=== PATIENT | male | born 1960 | race African-American/Black ===

== ENCOUNTER 2019-02-05 08:10 | Emergency (ER) | payer MEDICARE, MEDICAID ==
[2019-02-05 09:04] LABS: ALANINE AMINOTRANSFERASE 24 U/L (21-72); ALBUMIN 3.7 g/dL (3.5-5.0); ALKALINE PHOSPHATASE 61 U/L (38-126); ANION GAP 5 (5-19); ASPARTATE AMINO TRANSFERASE 26 U/L (17-59); BILIRUBIN,DIRECT 0.2 mg/dL (0.0-0.4); BILIRUBIN,TOTAL 0.5 mg/dL (0.2-1.3); BLOOD UREA NITROGEN 19 mg/dL (7-20); CALCIUM 9.3 mg/dL (8.4-10.2); CARBON DIOXIDE 24 mmol/L (22-30); CHLORIDE 111 mmol/L (98-107); GLUCOSE 91 mg/dL (75-110); LIPASE 323.5 U/L (23-300); POTASSIUM 4.7 mmol/L (3.6-5.0); SODIUM 140.2 mmol/L (137-145); TOTAL PROTEIN 6.5 g/dL (6.3-8.2)
[2019-02-05 09:14] LABS: APPEARANCE,URINE CLEAR; BILIRUBIN,URINE NEGATIVE (NEGATIVE); COLOR,URINE YELLOW; GLUCOSE, URINE NEGATIVE (NEGATIVE); KETONES,URINE NEGATIVE (NEGATIVE); LEUKOCYTE ESTERASE,URINE NEGATIVE (NEGATIVE); NITRITE,URINE NEGATIVE (NEGATIVE); PROTEIN,URINE 100 mg/dL (NEGATIVE); URINE SPECIFIC GRAVITY 1.019; UROBILINOGEN,URINE NEGATIVE mg/dL (<2.0)
[2019-02-05 09:18] LABS: ABSOLUTE EOSINOPHILS # (AUTO) 0.1 10^3/uL (0.0-0.6); ABSOLUTE LYMPHOCYTES (AUTO) 2.8 10^3/uL (0.5-4.7); ABSOLUTE MONOCYTES (AUTO) 0.8 10^3/uL (0.1-1.4); BASOPHILS % (AUTO) 0.5 % (0-2); EOSINOPHILS % (AUTO) 1.9 % (0-6); HEMATOCRIT 39.9 % (37.9-51.0); HEMOGLOBIN 13.1 g/dL (13.5-17.0); LYMPHOCYTES % (AUTO) 36.3 % (13-45); MEAN CORPUSCULAR HEMOGLOBIN 27.8 pg (27.0-33.4); MEAN CORPUSCULAR HGB CONC 32.9 g/dL (32.0-36.0); MEAN CORPUSCULAR VOLUME 84 fl (80-97); PLATELET COUNT 250 10^3/uL (150-450); RED BLOOD COUNT 4.73 10^6/uL (4.35-5.55); RED CELL DISTRIBUTION WIDTH 14.9 % (11.5-14.0); SEGMENTED NEUTROPHILS % (AUTO) 51.3 % (42-78); TOTAL CELLS COUNTED % (AUTO) 100 %; WHITE BLOOD COUNT 7.9 10^3/uL (4.0-10.5)
[2019-02-05] MEDS ORDERED: DICYCLOMINE HCL INJ 20 MG/2 ML AMPULE IM ONE (09:32)
[2019-02-05] MEDS ORDERED: ONDANSETRON HCL INJ/PF 4 MG/2 ML SDV IV ONE (09:32)
--- NOTE | 2019-02-05 09:51 | ER Document Report ---
ED General - General Chief Complaint: Abdominal Pain Stated Complaint: ABDOMINAL PAIN Time Seen by Provider: 02/05/19 09:03 Primary Care Provider: AMY JOVEL MD [Primary Care Provider] - Follow up as needed - HPI Notes: Patient is a 58-year-old male who presents emergency department for evaluation of abdominal pain, nausea, vomiting, diarrhea. He states his symptoms began 2 nights ago. He has had 4 episodes of nonbloody, nonbilious emesis. He has had multiple episodes of watery diarrhea. He has a crampy pain in his right abdomen, which waxes and wanes in severity but no other seems to go away. He denies any urinary symptoms of any sort. He was actually seen in the emergency department last night at [facility]. He states that he did have a CT scan, with IV contrast. He notes that there was "something in my upper abdomen." He cannot further elaborate. He states he was on his way to [place] this morning, where his oncologist is, and his pain was more significant, so he p resents to the ED for further evaluation. He has had some chills, but is unsure as to whether or not this is just because his house is kept "so darn cold." - Related Data Allergies/Adverse Reactions: bacitracin Allergy (Verified 02/05/19 08:15) Sulfa (Sulfonamide Antibiotics) Allergy (Verified 02/05/19 08:15) zinc Allergy (Verified 02/05/19 08:15) Past Medical History - General Information source: Patient - Social History Smoking Status: Unknown if Ever Smoked Family History: Reviewed & Not Pertinent Patient has suicidal ideation: No Patient has homicidal ideation: No Renal/ Medical History: Denies: Hx Peritoneal Dialysis Malignancy Medical History: Reports Hx Leukemia Review of Systems - Review of Systems Constitutional: See HPI EENT: No symptoms reported Cardiovascular: No symptoms reported Respiratory: No symptoms reported Gastrointestinal: See HPI Genitourinary: No symptoms reported Male Genitourinary: No symptoms reported Musculoskeletal: No symptoms reported Skin: No symptoms reported Neurological/Psychological: No symptoms reported Physical Exam - Vital signs Vitals: Temp Pulse Resp BP Pulse Ox 97.6 F 78 16 133/82 H 99 02/05/19 08:18 02/05/19 08:18 02/05/19 08:18 02/05/19 08:18 02/05/19 08:18 - Notes Notes: Vital signs reviewed, please refer to chart. Head is normocephalic, atraumatic. Pupils equal round, reactive to light. Neck is supple without meningismus. Heart is regular rate and rhythm. Lungs are clear to auscultation bilaterally. Abdomen is soft, moderate tenderness in the right upper quadrant as well as mid abdomen without rebound or guarding, normoactive bowel sounds throughout. Extremities without cyanosis, clubbing. Posterior calves are nontender. Peripheral pulses are equal. Skin is warm and dry. Patient is awake, alert, neurological exam is nonfocal. Course - Re-evaluation Re-evalutation: 02/05/19 12:03 Patient presents emergency department for evaluation of the above-mentioned complaints. He had no emesis or diarrhea here. Serial abdominal exams remain benign. He had been seen last night and [facility] emergency department. I did obtain laboratory investigations and imaging from that visit. His laboratory investigations were really only remarkable for a drug screen positive for cocaine and opiates. CT scan did reveal very mild pancreatic duct dilation. His lipase here was only very mildly elevated at just over 320. I am not impressed that this is the etiology of this patient's pain. I did explain to the patient that there could be multiple etiologies to pancreatic duct dilation, and that he should have follow-up of this finding. We will have the patient follow-up with his primary care physician. I will send him home with [place] and close follow-up. He is to return to the ED with worsening or new concerning symptoms of any sort. 02/05/19 12:09 - Vital Signs Vital signs: Temp Pulse Resp BP Pulse Ox 98.0 F 68 16 130/93 H 99 02/05/19 12:03 02/05/19 12:03 02/05/19 12:03 02/05/19 12:03 02/05/19 12:03 - Laboratory Result Diagrams: 02/05/19 08:39 02/05/19 08:39 Laboratory results interpreted by me: 02/05/19 02/05/19 02/05/19 08:35 08:39 08:39 Hgb 13.1 L RDW 14.9 H Chloride 111 H Creatinine 1.30 H Est GFR (Non-Af Amer) 57 L Lipase 323.5 H Urine Protein 100 H Urine Blood SMALL H Discharge - Discharge Clinical Impression: Epigastric pain Nausea and vomiting Qualifiers: Vomiting type: unspecified Vomiting Intractability: non-intractable Qualified Code(s): R11.2 - Nausea with vomiting, unspecified Diarrhea Qualifiers: Diarrhea type: presumed infectious Qualified Code(s): R19.7 - Diarrhea, u nspecified Condition: Stable Disposition: HOME, SELF-CARE Instructions: Abdominal Pain ([facility]), Diarrhea, Nonspecific ([facility]), Vomiting ([facility]) Additional Instructions: Start with clear liquids only, advance slowly to bland diet. Zofran as needed for nausea. Follow-up with your doctor in 1 to 2 days. The duct on your pancreas was mildly dilated. This should be followed up, you may require MRCP for further evaluation. Return to the emergency department with worsening or new concerning symptoms of any sort. Prescriptions: Ondansetron [Zofran Odt 4 mg Tablet] 1 tab PO Q4H PRN #15 tab.rapdis PRN Reason: For Nausea/Vomiting Referrals: AMY JOVEL MD [Primary Care Provider] - Follow up as needed
[2019-02-05] MEDS ORDERED: ACETAMINOPHEN 325 MG TABLET PO ONE (09:52)
[2019-02-05 12:04] VITALS: BP 130/93
== END 2019-02-05 12:14 | disposition home or self-care (01) ==
LOC: ER 08:10
DX: R10.13 Epigastric pain (principal); R10.811 Right upper quadrant abdominal tenderness; R10.819 Abdominal tenderness, unspecified site; R11.2 Nausea with vomiting, unspecified; R19.7 Diarrhea, unspecified; K86.89 Other specified diseases of pancreas; R74.8 Abnormal levels of other serum enzymes; R68.83 Chills (without fever); Z88.1 Allergy status to other antibiotic agents; Z88.2 Allergy status to sulfonamides; Z88.8 Allergy status to other drugs, medicaments and biological substances; Z85.6 Personal history of leukemia
CPT/HCPCS: 99284; 96372; 96374; 36415; 83690; 85025; 80053; 81001; A9270; J0500; J2405